=== PATIENT | male | born 1965 | race Two or more races ===

== ENCOUNTER 2021-11-07 14:08 | Emergency (ER) | payer MEDICAID, OTHER ==
[~2021-11-07] VITALS: Ht 165.1 cm; Wt 66.3 kg
[2021-11-07 14:41] LABS: Urine WBC None Seen /hpf (0 - 3)
[2021-11-07 15:07] LABS: Basophils # (auto) 0 10 ^3/uL (0-0.2); Basophils % (auto) 0.5 % (0.0-2.0); Eosinophils # (auto) 0.1 10 ^3/uL (0-0.8); Eosinophils % (auto) 1.3 % (0.0-7.0); Hematocrit 34.2 % (41.0-53.0); Hemoglobin 11.5 g/dL (13.5-17.5); Lymphocytes # (auto) 0.8 10 ^3/uL (0.4-5.4); Lymphocytes % (auto) 13.4 % (10.0-50.0); Mean Corpuscular Hemoglobin 30.5 pg (28.0-32.0); Mean Corpuscular Hgb Conc. 33.8 g/dL (32.0-36.0); Mean Corpuscular Volume 90.4 fL (80.0-100.0); Monocytes # (auto) 0.4 10 ^3/uL (0-1.3); Neutrophils # (auto) 4.7 10 ^3/uL (1.6-8.6); Neutrophils % (auto) 78.8 % (37.0-80.0); Nucleated Red Blood Cells % 0.1 %; Red Blood Cells 3.78 10^6/uL (4.5-5.90); Red Cell Distribution Width 13.1 % (11.8-14.3); White Blood Cell 5.9 10^3/uL (4.4-10.8)
[2021-11-07 15:08] LABS: Urine Bacteria NONE SEEN /hpf (None Seen); Urine Blood Negative /uL (Negative); Urine Specific Gravity 1.014 (1.001-1.035)
[2021-11-07 15:26] LABS: Albumin 4.7 g/dL (3.4-5.0); Calcium 8.9 mg/dL (8.5-10.1); Potassium 4.2 mmol/L (3.5-5.1)
[2021-11-07 15:31] LABS: BUN/Creatinine Ratio 17.9; Bilirubin, Total 0.5 mg/dL (0.2-1.0); Total Protein 8.6 g/dL (6.4-8.2)
[2021-11-07 16:20] VITALS: BP 141/72
== END 2021-11-07 16:33 | disposition home or self-care (01) ==
LOC: ER 14:08
DX: N28.9 Disorder of kidney and ureter, unspecified (principal); E11.9 Type 2 diabetes mellitus without complications; E78.5 Hyperlipidemia, unspecified; I10 Essential (primary) hypertension
CPT/HCPCS: 36415; 76775; 80053; 81001; 85025